=== PATIENT | female | born 1950 | race Two or more races ===

== ENCOUNTER 2016-11-13 08:09 | Emergency (ER) | payer OTHER ==
[~2016-11-13] VITALS: Ht 157.5 cm; Wt 72.6 kg
[2016-11-13 08:16] VITALS: BP 120/81; PULSE 89; RESP 14; TEMP 98; O2SAT 97
[2016-11-13] MEDS ORDERED: AUGM875T3 PO (10:21)
--- NOTE | 2016-11-13 10:22 | PD ---
HPI Chief Complaint: ENT Complaint Time Seen by Provider: 09:42 Travel History International Travel<30 days: No Contact w/Intl Traveler<30days: No Traveled to known affect area: No History of Present Illness HPI 66-year-old woman presents emergent department complaining of right facial swelling erythema tenderness and pain. States she noticed a small pustule and inside of her nose couple days ago, she was scratching at her negative to drain and then she started having worsening pain redness and swelling. She has no fevers. She had a few chills this morning. One episode of vomiting a couple days ago. She was seen in urgent care and sent to the ED for CT. She otherwise has been feeling generally well. No history of diabetes. History Past Medical History Medical History: Denies Significant Hx Tetanus Vaccination: < 5 Years Past Surgical History Surgical History: No Previous Surgery Social History Alcohol Use: Yes (SOC) Tobacco Use: No Allergies-Medications (Allergen,Severity, Reaction): Coded Allergies: Sulfa (Verified Allergy, Unknown, UNKNOWN PER MOM CHILD, 11/13/16) Reported Meds & Prescriptions Reported Meds & Active Scripts Active No Active Prescriptions or Reported Medications Review of Systems Except as stated in HPI: all other systems reviewed are Neg Physical Exam Narrative GENERAL: Well-appearing 66 year-old woman acute distress. SKIN: Focused skin assessment warm/dry. HEAD: Atraumatic. Normocephalic. EYES: Pupils equal and round. No scleral icterus. No injection or drainage. ENT: No nasal bleeding or discharge. Mucous membranes pink and moist. Smile pustule on the outer side of her right near. She has facial fullness and redness and loss of the nasal labial fold and some fullness up on the nose spreading toward the eye. There is no proptosis. There is no periorbital swelling specifically. There is tenderness in this area along the lateral nose. NECK: Trachea midline. No JVD. CARDIOVASCULAR: Regular rate and rhythm. No murmur appreciated. RESPIRATORY: No accessory muscle use. Clear to auscultation. Breath sounds equal bilaterally. GASTROINTESTINAL: Abdomen soft, non-tender, nondistended. Hepatic and splenic margins not palpable. MUSCULOSKELETAL: No obvious deformities. Data Data Last Documented VS Vital Signs Date Time Temp Pulse Resp B/P Pulse Ox O2 Delivery O2 Flow Rate FiO2 11/13/16 08:16 98.0 89 14 120/81 97 Orders Ampicillin-Sulbactam Inj (Unasyn Inj) (11/13/16 10:30) MDM Medical Decision Making Medical Screen Exam Complete: Yes Emergency Medical Condition: Yes Differential Diagnosis Facial cellulitis, pustule, abscess, other Narrative Course Medical decision-making 66 old woman with a facial cellulitis a pustule inside the right near. We'll recommend oral antibiotics. We'll give her a dose of IM Unasyn to start. I don 't think she needs CT imaging at this time. If she has any worsening pain redness or swelling, or fevers, she'll need repeat evaluation and possibly imaging and IV antibiotics. Diagnosis Primary Impression: Facial cellulitis Additional Instructions: Take antibiotics as prescribed. Consider taking a probiotic such as Align to help with gi upset from antibiotics. Follow-up with her primary doctor on Thursday. Return to the emergency department for any worsening pain, redness, swelling, or fevers. Med/Other Pt SpecificInfo: Prescription(s) given Scripts Amoxicillin-Clavulanate (Augmentin)875-125 Mg Tab1 Tab PO BID 10 Days Ref 0 Prov:Saeed Franco MD 11/13/16 Disposition: 01 DISCHARGE HOME Condition: Stable Saeed Franco MD Nov 13, 2016 10:22
[2016-11-13] MEDS ORDERED: AMPICILLIN-SULBACTAM INJ 3 GM VIAL IM ONE (10:30)
== END 2016-11-13 11:06 | disposition home or self-care (01) ==
LOC: PHED 08:09
DX: L03.211 Cellulitis of face (principal)
CPT/HCPCS: 96372; 99284; J0295